=== PATIENT | male | born 1950 | race Caucasian/White ===

== ENCOUNTER 2020-02-20 07:32 | Outpatient (CLI) | payer OTHER, SELFPAY ==
[2020-02-20 08:20] LABS: Cholesterol 149 mg/dL (0-200); HDL Direct 60 mg/dL; Triglycerides 50 mg/dL (<150)
[2020-02-20 08:31] LABS: LDL Cholesterol Direct 67 mg/dL
== END 2020-02-20 07:33 | disposition home or self-care (01) ==
PROVIDERS: PCP Family Medicine; Visit Provider Internal Medicine Cardiovascular Disease
DX: E78.5 Hyperlipidemia, unspecified (principal)
CPT/HCPCS: 36415; 80061

== ENCOUNTER 2021-01-30 08:05 | Outpatient (CLI) | payer MEDICARE, OTHER, SELFPAY ==
[2021-01-30 08:35] LABS: Basophils Percent Auto 0.8 % (0.2-1.2); Eosinophils Absolute Auto 0.2 K/mm3 (0-0.3); Eosinophils Percent Auto 4.2 % (0-4.4); Hematocrit 39.3 % (42.0-52.0); Hemoglobin 13.9 g/dL (14.0-18.0); Immature Granulocyte Absolute 0.01 K/mm3 (0.00-0.031); Immature Granulocyte Percent A 0.2 % (0-0.5); Lymphocytes Absolute Auto 1.06 K/mm3 (0.9-3.2); Lymphocytes Percent Auto 22.3 % (18.3-44.2); Mean Corpuscular HGB Conc 35.4 g/dl (32-36); Mean Corpuscular Hemoglobin 32.8 pg (26-34); Mean Corpuscular Volume 92.7 fl (80-100); Mean Platelet Volume 9.4 fl (7.4-10.4); Monocytes Absolute Auto 0.5 K/mm3 (0.1-0.6); Monocytes Percent Auto 9.5 % (2.6-8.5); Platelet Count Result 166 k/mm3 (150-375); Red Blood Count 4.24 M/mm3 (4.6-6.20); Red Cell Distribution Width 11.5 % (11.5-14.5); White Blood Count 4.8 K/mm3 (4.5-10.0)
[2021-01-30 08:45] LABS: Alanine Aminotransferase 26 U/L (4-50); Albumin Level 4.4 g/dL (3.5-5.1); Alkaline Phosphatase 64 U/L (38-126); Anion Gap 5 mmol/L (8-16); Aspartate Amino Transferase 30 U/L (17-59); Blood Urea Nitrogen 20 mg/dL (9-20); Calcium 9.1 mg/dL (8.4-10.2); Carbon Dioxide 30 mmol/L (22-30); Chloride 103 mmol/L (98-107); Cholesterol 161 mg/dL (0-200); Estimated Glomerular Filt Rate > 60; Glucose 108 mg/dL (65-110); HDL Direct 66 mg/dL; Sodium 138 mmol/L (137-145); Triglycerides 46 mg/dL (<150)
[2021-01-30 08:56] LABS: LDL Cholesterol Direct 71 mg/dL
== END 2021-01-30 08:06 | disposition home or self-care (01) ==
PROVIDERS: PCP Internal Medicine; Referring Provider Internal Medicine Cardiovascular Disease; Visit Provider Nurse Practitioner
DX: E03.9 Hypothyroidism, unspecified (principal); E78.5 Hyperlipidemia, unspecified; I10 Essential (primary) hypertension; Z13.29 Encounter for screening for other suspected endocrine disorder
CPT/HCPCS: 36415; 80053; 80061; 84443; 85025

== ENCOUNTER 2021-12-19 09:58 | Outpatient (CLI) | payer MEDICARE, OTHER, SELFPAY ==
[2021-12-19 19:33] LABS: Alanine Aminotransferase 35 U/L (6-50); Albumin Level 4.5 g/dL (3.5-5.1); Alkaline Phosphatase 62 U/L (38-126); Anion Gap 9 mmol/L (8-16); Aspartate Amino Transferase 34 U/L (17-59); Bilirubin,Total 0.8 mg/dL (0.2-1.3); Blood Urea Nitrogen 21 mg/dL (9-20); Carbon Dioxide 26 mmol/L (22-30); Chloride 101 mmol/L (98-107); Cholesterol 162 mg/dL (0-200); Estimated Glomerular Filt Rate > 60; Glucose 104 mg/dL (65-110); HDL Direct 63 mg/dL; Potassium 4.1 mmol/L (3.4-5.0); Sodium 136 mmol/L (137-145); Triglycerides 78 mg/dL (<150)
[2021-12-19 19:38] LABS: Basophils Absolute Auto 0.1 K/mm3 (0.0-0.1); Basophils Percent Auto 1.2 % (0.2-1.2); Eosinophils Absolute Auto 0.2 K/mm3 (0-0.3); Eosinophils Percent Auto 2.8 % (0-4.4); Hematocrit 39.9 % (42.0-52.0); Hemoglobin 13.6 g/dL (14.0-18.0); Immature Granulocyte Absolute 0.01 K/mm3 (0.00-0.031); Immature Granulocyte Percent A 0.2 % (0-0.5); Lymphocytes Absolute Auto 1.18 K/mm3 (0.9-3.2); Lymphocytes Percent Auto 19.6 % (18.3-44.2); Mean Corpuscular HGB Conc 34.1 g/dl (32-36); Mean Corpuscular Hemoglobin 31.9 pg (26-34); Mean Corpuscular Volume 93.7 fl (80-100); Mean Platelet Volume 10.6 fl (7.4-10.4); Monocytes Absolute Auto 0.6 K/mm3 (0.1-0.6); Monocytes Percent Auto 10.3 % (2.6-8.5); Neutrophils Percent Auto 65.9 % (45.5-73.1); Platelet Count Result 163 k/mm3 (150-375); Red Blood Count 4.26 M/mm3 (4.6-6.20); Red Cell Distribution Width 11.9 % (11.5-14.5)
[2021-12-19 19:44] LABS: LDL Cholesterol Direct 72 mg/dL
[2021-12-19 20:03] LABS: Prostate Specific Antigen 0.5 ng/mL (< OR = 4.0)
== END 2021-12-19 09:59 | disposition home or self-care (01) ==
PROVIDERS: PCP Internal Medicine; Visit Provider Nurse Practitioner
DX: Z12.5 Encounter for screening for malignant neoplasm of prostate (principal); E78.5 Hyperlipidemia, unspecified; I10 Essential (primary) hypertension; E03.9 Hypothyroidism, unspecified; Z13.29 Encounter for screening for other suspected endocrine disorder
CPT/HCPCS: 36415; 80053; 80061; 84153; 84443; 85025; G0103

== ENCOUNTER 2021-12-22 11:52 | Outpatient (CLI) | payer MEDICARE, OTHER, SELFPAY ==
[2021-12-22 19:54] LABS: Basophils Absolute Auto 0.1 K/mm3 (0.0-0.1); Basophils Percent Auto 0.8 % (0.2-1.2); Eosinophils Absolute Auto 0.2 K/mm3 (0-0.3); Hematocrit 38.9 % (42.0-52.0); Hemoglobin 13.2 g/dL (14.0-18.0); Immature Granulocyte Absolute 0.02 K/mm3 (0.00-0.031); Immature Granulocyte Percent A 0.3 % (0-0.5); Lymphocytes Percent Auto 21.9 % (18.3-44.2); Mean Corpuscular HGB Conc 33.9 g/dl (32-36); Mean Corpuscular Hemoglobin 32.4 pg (26-34); Mean Corpuscular Volume 95.3 fl (80-100); Mean Platelet Volume 10.5 fl (7.4-10.4); Monocytes Absolute Auto 0.5 K/mm3 (0.1-0.6); Monocytes Percent Auto 7.8 % (2.6-8.5); Neutrophils Absolute Auto 3.9 K/mm3 (1.3-6.7); Neutrophils Percent Auto 66.2 % (45.5-73.1); Platelet Count Result 151 k/mm3 (150-375); Red Blood Count 4.08 M/mm3 (4.6-6.20); Red Cell Distribution Width 11.9 % (11.5-14.5); Reticulocyte Hemoglobin Conten 35.6 pg (28.2-35.7); Reticulocyte Percent 1.53 % (0.7-4.3); Reticulocytes Absolute 0.06 B/L (32.2-175.7); White Blood Count 5.9 K/mm3 (4.5-10.0)
[2021-12-22 20:51] LABS: Erythrocyte Sedimentation Rate 14 mm/hr (0-20)
[2021-12-22 22:35] LABS: Iron 110 ug/dL (49-181)
[2021-12-22 22:53] LABS: Percent Iron Saturation 37 % (20-50)
[2021-12-22 22:54] LABS: CRP < 0.5 mg/dL (<1.0)
== END 2021-12-22 11:53 | disposition home or self-care (01) ==
PROVIDERS: PCP Internal Medicine; Visit Provider Nurse Practitioner
DX: D64.9 Anemia, unspecified (principal)
CPT/HCPCS: 36415; 82728; 83540; 83550; 85025; 85046; 85652; 86140

== ENCOUNTER 2022-12-06 07:48 | Outpatient (CLI) | payer MEDICARE, SELFPAY ==
--- NOTE | 2022-12-06 08:02 | ECG_ITS ---
Measurements Intervals [place] Rate: 62 P: 48 [place]: 203 QRS: -9 QRSD: 105 T: 30 QT: 383 QTc: 392 Interpretive Statements SINUS RHYTHM INCOMPLETE RIGHT BUNDLE BRANCH BLOCK VOLTAGE CRITERIA FOR LVH BASELINE ARTIFACT- I, II, III, AVR, AVF BORDERLINE ECG NO PREVIOUS ECG AVAILABLE FOR COMPARISON Electronically Signed On 12-06-2022 8:36:37 CDT by Sai Stroud D.O.
== END 2022-12-06 07:49 | disposition home or self-care (01) ==
PROVIDERS: PCP Internal Medicine; Visit Provider Urology
DX: I10 Essential (primary) hypertension (principal); I45.10 Unspecified right bundle-branch block
CPT/HCPCS: 93005

== ENCOUNTER 2022-12-13 02:26 | Day surgery (SDC) | payer MEDICARE, SELFPAY ==
--- NOTE | 2022-12-03 09:36 | PC.NURSE ---
Report to the Outpatient Waiting Room, entrance under the green pavilion located off [facility], at time __0800 on date __12/13/22 . Planned Procedure Time: __1000 . Time changes happen often and if your time is changed the preop area will call you the afternoon before. - You and your visitor will be asked to self-screen and do not enter if you have any COVID symptoms. - A mask is optional within the hospital at this time. Patients may have clear liquids (water, carbonated beverages, clear teas, apple juice) until 3 hours prior to surgery with a maximum of 20 ounces. - No food from midnight until time of surgery - Infants may have breast milk until 4 hours before surgery, infant formula 6 hours prior to surgery. - Children will be allowed to drink immediately following surgery. If applicable, please bring a bottle or sippy cup to assist with drinking. Juice, water, soda, and popsicles are readily available. For infants on formula, please bring formula the day of surgery. Pacifiers are allowed. Take the following medications with a SIP of water the morning of surgery: __AMLODIPINE,CARVEDILOL, LEVOTHYROXINE DO NOT STOP ANY OF YOUR OTHER PRESCRIPTION MEDICATIONS PRIOR TO SURGERY ?EXCEPT THE FOLLOWING Medications to discontinue per physician _PT STATE_HOLD ASPIRIN _AND ALL VITAMINS AND SUPPLEMENTS 7 DAYS PRE OP PER DR FLEMING.LAST DOSE 12/05/22 Please no make-up, nail croatian, hairspray, perfume, deodorant, or body powder the day of surgery. No jewelry (including any body piercings) or valuables the day of surgery, leave them at home. Please take a shower or bath the night before, or the morning of, surgery with an antibacterial soap. Wear comfortable, loose fitting clothing. Children are encouraged to wear pajamas. - Jewelry must be removed prior to entering the operating room. Rings and piercings that are not removed may be cut off. - The hospital will not accept responsibility for valuables. - Please leave all valuables, including medications, at home the day of surgery. If you are going home after surgery, a licensed regional driver must drive you home. - NO public transportation without another adult if you receive anesthesia. - We recommend that an adult stay with you for 24 hours following discharge. - We also recommend that you do not drive, make important decision, drink alcoholic beverages, or take any drugs that were not prescribed by your health care provider for at least 24 hours after your discharge time. For Pediatric surgeries, we recommend two adults accompany the child home. Follow any additional instructions given to you from your surgeon. If you or anyone in your household have experienced Covid symptoms in the past week, please notify your surgeon or the nurse liaison at the phone number below for possible testing. Telephone instructions given to __PATIENT and asked if any additional questions and then verbalized understanding. Patient advised to call surgeon office or pre surgery nurse liaison [phone] if any additional questions.
[2022-12-03 09:42] VITALS: BMI 23.6
--- NOTE | ~2022-12-13 | XR_ITS ---
EXAMINATION: XR retrograde pyelogram BI DATE: 12/13/2022 09:37 INDICATION: Bilateral retrograde pyelograms TECHNIQUE: 142 images of the abdomen and pelvis were obtained during procedure performed by 12/13/2022 . Radiologist was not present for the imaging or procedure. The amount of fluoroscopy time used durin g this procedure was 0.4 minutes. COMPARISON: None. FINDINGS: Retrograde contrast injection into both the right and left ureters demonstrate normal appearance to t he bilateral renal collecting systems and ureters. No evident filling defects or urothelial irregular ities. IMPRESSION: 1. Normal bilateral retrograde pyelograms. Reviewed, dictated and finalized at location A.
--- NOTE | 2022-12-13 06:16 | WPDHPUPDATE1 ---
History and Physical Update Update Date/Time: 12/13/22 06:16 History and Physical has been reviewed, including an updated exam of the patient. There are NO changes in the patient's condition. Risks, benefits, and alternatives have been discussed and questions answered. Patient agrees to proceed with procedure.
[2022-12-13 08:16] VITALS: BP 154/84; PULSE 64; RESP 20; TEMP 36.3; O2SAT 100
[2022-12-13] MEDS: LACTATED RINGERS 1,000 ML 30 ML IV CONT (08:23)
--- NOTE | 2022-12-13 08:36 | WPDANESEPPF ---
Anes - Initial Pre Proc Eval Procedure: Operation Date: 12/13/22 10:00 Proposed Procedures p Trans Urethral Resection Bladder Tumor - Ming Vergara MD s Cystoscopy with Bladder Biopsy, Bilateral Retrograde Pyelogram - Ming Vergara MD Date/Time: 12/13/22 08:36 Surgeon: Ming Vergara MD Pre Op Diagnosis: Bladder Tumor, BPH, with Obstruction Patient Data Age: 71 Gender: M Height: 1.8 m Weight: 75 kg Last Vital Signs Temp 36.3 C L 12/13/22 08:16 Pulse 64 12/13/22 08:16 Resp 20 12/13/22 08:16 BP 154/84 H 12/13/22 08:16 Pulse Ox 100 12/13/22 08:16 O2 Del Method Room Air 12/13/22 08:16 Allergies Allergy/AdvReac Type Severity Reaction Status Date / Time No Known Allergies Allergy Verified 12/13/22 08:14 Home Medications Medication Instructions Recorded Confirmed Type aspirin 81 mg tablet,delayed 81 mg PO DAILY 01/22/19 12/03/22 History release multivitamin 1 cap PO DAILY 01/22/19 12/03/22 History tamsulosin 0.4 mg capsule 0.4 mg PO DAILY 01/22/19 12/03/22 History vit B complex 100 combo no.2 100 1 tablet PO DAILY 01/22/19 12/03/22 History mg tablet,extended release (B-100 Complex ER) finasteride 5 mg tablet 5 mg PO DAILY 12/19/21 12/03/22 History levothyroxine 75 mcg tablet See Rx Instructions .Route 03/13/22 12/03/22 Rx .COMPLEX #90 tabs carvedilol 12.5 mg tablet See Rx Instructions .Route 06/11/22 12/03/22 Rx .COMPLEX #180 tabs losartan 100 mg tablet See Rx Instructions .Route 06/11/22 12/03/22 Rx .COMPLEX #90 tabs pravastatin 10 mg tablet See Rx Instructions .Route 06/11/22 12/03/22 Rx .COMPLEX #90 tabs amlodipine 5 mg tablet See Rx Instructions .Route 09/10/22 12/03/22 Rx .COMPLEX #90 tabs coQ10 (ubiquinol) 100 mg capsule 100 mg PO DAILY 12/03/22 12/03/22 History Patient hx anesthesia problems: none Family hx anesthesia problems: none Results Review: All pre-operative results and documents have been reviewed as part of the pre-operative evaluation. [facility] Past Medical History Medical History BPH loc w/o ur obs/LUTS GERD (gastroesophageal reflux disease) Hypertension Hypothyroidism Prostatitis Surgical History Surgical History History of coronary artery stent placement 01/2016 History of deviated nasal septum 1975 - s/p surgical correction History of thyroidectomy (~1997) Family History Family History Father Family history of cardiovascular disease Mother Family history of cardiovascular disease Other Family history of coronary artery disease Hypertension Social History Social History Smoking status: Never smoker Second hand tobacco smoke exposure: No Alcohol intake: never Substance use: never Substance use type: does not use Living arrangements: with family Spiritual care concerns: No Anes - Eval Final PreProcedure Day of Procedure 12/13/22 08:36 Patient weight: normal Heart: regular rate and rhythm Lungs: clear to auscultation Airway: Mallampati scale class II Neurological: alert and oriented Last oral intake: >/= 8 hours ASA classification: III Emergent: no Anesthetic plan: proceed Anesthesia type and monitoring: general LMA and standard monitoring Results Review: All pre-operative results and documents have been reviewed as part of the pre-operative evaluation. Informed Consent: The patient's anesthetic plan and its attendant risks and benefits were discussed with the patient/family/POA. Questions were solicited and answers provided to the satisfaction of the patient/family/POA.
[2022-12-13] MEDS: ceFAZolin 2 GM/D5W 50 ML 2 GM/50 ML BAG IVPB (09:14)
[2022-12-13] MEDS: LIDOCAINE HCL 2% GEL UROJET 10 ML PKG MUCOUS MEM (09:37)
--- NOTE | 2022-12-13 09:44 | P.OP_ITS ---
Procedure Note - Detailed Date of Procedure 12/13/22 Pre-op Diagnosis Recurrent bladder tumor Post-op Diagnosis Same Procedure Performed Cystoscopy, bilateral retrograde pyelography, TURBT ( small,1-2 cm) Surgeon Ming Vergara MD Anesthesia General Description of Procedure patient brought the op suite was prepped draped in routine sterile fashion while in dorsal lithotomy position after the uneventful induction of a general LMA anesthetic. Cystoscopy is undertaken with a 21 F rigid cystoscope. He has moderate lateral lobe hyperplasia of the prostate. He has a pedunculated recurrent neoplasm arising at the 6 o'clock position of the bladder neck. I suspected is causing some obstructive uropathy. The bladder is otherwise endoscopically normal without mucosal hyperemia or additional neoplasm. He has a single orthotopic ureteral orifice bilobed laterally. A F bulb-tipped catheters used to obtain bilateral retrograde pyelograms which showed normal upper urinary tracts, without obstruction or filling defects. Using resectoscope this small bladder neck neoplasm was resected. The base and p eriphery was cauterized both the loop and rollerball electrode. He tolerated the procedure well. Drains No Pathology Yes Complications No immediate complications Condition Stable
[2022-12-13 09:45] VITALS: BP 99/67; PULSE 60; RESP 10; TEMP 36.4; O2SAT 100
[2022-12-13 10:00] VITALS: BP 119/77; PULSE 60; RESP 10; O2SAT 100
[2022-12-13 10:15] VITALS: BP 135/85; PULSE 63; RESP 12; O2SAT 100
[2022-12-13 10:36] VITALS: BP 141/80; PULSE 59
== END 2022-12-13 11:23 | disposition home or self-care (01) ==
PROVIDERS: PCP Internal Medicine; Visit Provider Urology
PROC: 0TBB8ZZ Excision of Bladder, Via Natural or Artificial Opening Endoscopic (ICD-10-PCS; CPT 52234; principal; 2022-12-13 10:00)
PROC: (CPT 52352; 2022-12-13 10:00)
DX: C67.5 Malignant neoplasm of bladder neck (principal); N40.0 Benign prostatic hyperplasia without lower urinary tract symptoms; I10 Essential (primary) hypertension; K21.9 Gastro-esophageal reflux disease without esophagitis; E89.0 Postprocedural hypothyroidism; Z79.82 Long term (current) use of aspirin; Z95.5 Presence of coronary angioplasty implant and graft
CPT/HCPCS: 52234; 51702; 74420; 88305; 99283; C1758; C1769; J0690; J1100; J2405; J2704; J3010; J7120; Q9966

== ENCOUNTER 2022-12-13 18:47 | Emergency (ER) | payer MEDICARE, SELFPAY ==
[2022-12-13 18:48] VITALS: BP 187/104; PULSE 100; RESP 18; TEMP 36.6; O2SAT 100
--- NOTE | 2022-12-13 21:25 | ED.GENADULT ---
HPI - General Adult General Chief complaint: Urogenital-Male Stated complaint: urinary retention s/p TURP Time Seen by Provider: 12/13/22 19:52 History of Present Illness HPI narrative: 71-year-old male who follows up with urology, Dr Vergara. Presents to the ED for evaluation of urinary retention. Patient does take 2 medications for enlarged prostate and did have a TURP today. Patient also had a polyp removed from his bladder. After getting home patient states that he had some decreased urinary output. Upon arrival to the ED patient has significant urinary retention and a Guadalupe catheter was placed. Patient did feel improved after the placement of Guadalupe catheter. Related Data Home Medications Medication Instructions Recorded Confirmed aspirin 81 mg tablet,delayed 81 mg PO DAILY 01/22/19 12/03/22 release multivitamin 1 cap PO DAILY 01/22/19 12/03/22 tamsulosin 0.4 mg capsule 0.4 mg PO DAILY 01/22/19 12/03/22 vit B complex 100 combo no.2 100 1 tablet PO DAILY 01/22/19 12/03/22 mg tablet,extended release (B-100 Complex ER) finasteride 5 mg tablet 5 mg PO DAILY 12/19/21 12/03/22 coQ10 (ubiquinol) 100 mg capsule 100 mg PO DAILY 12/03/22 12/03/22 Allergies Allergy/AdvReac Type Severity Reaction Status Date / Time No Known Allergies Allergy Verified 12/13/22 08:14 Review of Systems Review of Systems: All systems reviewed & are unremarkable except as noted in HPI and below PMFSH Past Medical History Medical History BPH loc w/o ur obs/LUTS GERD (gastroesophageal reflux disease) Hypertension Hypothyroidism Prostatitis Surgical History Surgical History History of coronary artery stent placement 01/2016 History of deviated nasal septum 1974 - s/p surgical correction History of thyroidectomy (~1997) Family History Family History Father Family history of cardiovascular disease Mother Family history of cardiovascular disease Other Family history of coronary artery disease Hypertension Social History Social History Smoking status: Never smoker Second hand tobacco smoke exposure: No Alcohol intake: never Substance use: never Substance use type: does not use Living arrangements: with family Spiritual care concerns: No Exam Narrative: APPEARANCE: Well appearing, no pain, no distress, well-nourished. HEAD: normocephalic, atraumatic. EYES: PERRLA/EOMI, conjunctivae clear. NOSE: Normal no drainage NECK: Supple. No adenopathy, no masses. RESPIRATORY: Airway patent, respirations nonlabored. Clear to auscultation bilaterally, no rales, rhonchi, wheezing. CARDIOVASCULAR: Regular rate and rhythm without murmurs rubs or gallops. ABDOMINAL: Soft, nontender, nondistended, normal bowel sounds MUSCULOSKELETAL: Moves all extremities. Strength/ROM intact, No edema, No calf tenderness. NEURO: Alert. Cranial nerves II through XII intact. Grossly intact SKIN: Warm, dry. Normal Color Course Course Emergency Course: 71-year-old male presented ED for evaluation of urinary tension. Patient did feel improved after placement of the Guadalupe catheter. Urine did show some bloody urine but patient was draining adequately. Repeat bladder scan showed no retained urine and symptomatically patient does feel improved. Patient Mooney updated the results of the work-up and encouraged of close follow-up with Dr. Vergara. Vital Signs Vital signs: Vital Signs Temperature 97.9 F 12/13/22 18:48 Pulse Rate 100 12/13/22 18:48 Respiratory Rate 18 12/13/22 18:48 Blood Pressure 187/104 H 12/13/22 18:48 Pulse Oximetry 100 12/13/22 18:48 Oxygen Delivery Room Air 12/13/22 18:48 Temperature 97.9 F 12/13/22 18:48 Pulse Rate 100 12/13/22 18:48 Respiratory Rate 18 12/13/22 1
== END 2022-12-13 22:08 | disposition home or self-care (01) ==
PROVIDERS: Emergency Provider Emergency Medicine; PCP Internal Medicine
DX: N99.89 Other postprocedural complications and disorders of genitourinary system (principal); R33.8 Other retention of urine; R31.0 Gross hematuria; N40.1 Benign prostatic hyperplasia with lower urinary tract symptoms; K21.9 Gastro-esophageal reflux disease without esophagitis; I10 Essential (primary) hypertension; E89.0 Postprocedural hypothyroidism; Z95.5 Presence of coronary angioplasty implant and graft; Z79.82 Long term (current) use of aspirin
CPT/HCPCS: 51702; 99283

== ENCOUNTER 2023-02-12 07:14 | Outpatient (CLI) | payer MEDICARE, SELFPAY ==
[2023-02-12 08:04] LABS: Alanine Aminotransferase 40 U/L (6-50); Albumin Level 4.3 g/dL (3.5-5.1); Alkaline Phosphatase 71 U/L (38-126); Anion Gap 8 mmol/L (8-16); Aspartate Amino Transferase 38 U/L (17-59); Blood Urea Nitrogen 19 mg/dL (9-20); Calcium 9.1 mg/dL (8.4-10.2); Carbon Dioxide 30 mmol/L (22-30); Chloride 100 mmol/L (98-107); Cholesterol 169 mg/dL (0-200); Estimated Glomerular Filt Rate > 60; Glucose 101 mg/dL (65-110); HDL Direct 66 mg/dL; Potassium 3.8 mmol/L (3.4-5.0); Sodium 138 mmol/L (137-145); Triglycerides 51 mg/dL (<150)
[2023-02-12 08:14] LABS: LDL Cholesterol Direct 76 mg/dL
== END 2023-02-12 07:15 | disposition home or self-care (01) ==
PROVIDERS: PCP Internal Medicine; Visit Provider Internal Medicine Cardiovascular Disease
DX: E78.5 Hyperlipidemia, unspecified (principal)
CPT/HCPCS: 36415; 80053; 80061

== ENCOUNTER → 2023-02-16 07:46 | Outpatient (CLI) | payer MEDICARE, SELFPAY ==
--- NOTE | ~2023-02-16 | XR_ITS ---
EXAMINATION: XR lumbar spine 6V w bending DATE: 02/16/2023 08:22 INDICATION: Low back pain TECHNIQUE: Anteroposterior, lateral in neutral, flexion and extension, and bilateral oblique views of the lumbar spine, and cone-down lateral view of the lumbosacral junction were obtained. COMPARISON: 06/15/2011 FINDINGS: There are 3 mm of retrolisthesis of L2 on L3 and 5 mm of anterolisthesis of L4 on L5. No hy permobility is present with flexion or extension. There is severe loss of intervertebral disc space h eight at L5-S1. There is moderate loss of intervertebral disc space height at L2-3 and L4-5. The vert ebral body heights are maintained. There is no fracture. Small degenerative osteophytes project from the anterior endplates of multiple vertebral bodies. There is moderate facet joint osteoarthritis at L4-5 and L5-S1. IMPRESSION: 1. Moderate lumbar spondylosis without acute findings. Reviewed, dictated and finalized at location F. INSTALLER
== END ==
PROVIDERS: PCP Internal Medicine; Visit Provider Nurse Practitioner
DX: M43.06 Spondylolysis, lumbar region (principal)
CPT/HCPCS: 72114

== ENCOUNTER 2023-02-26 09:38 | Outpatient (CLI) | payer MEDICARE, SELFPAY ==
[2023-02-26 10:30] LABS: Basophils Percent Auto 0.7 % (0.2-1.2); Eosinophils Absolute Auto 0.2 K/mm3 (0-0.3); Eosinophils Percent Auto 3.1 % (0-4.4); Hematocrit 41.5 % (42.0-52.0); Immature Granulocyte Absolute 0.01 K/mm3 (0.00-0.031); Immature Granulocyte Percent A 0.2 % (0-0.5); Lymphocytes Absolute Auto 0.94 K/mm3 (0.9-3.2); Lymphocytes Percent Auto 17.2 % (18.3-44.2); Mean Corpuscular HGB Conc 33.7 g/dl (32-36); Mean Platelet Volume 10.1 fl (7.4-10.4); Monocytes Absolute Auto 0.5 K/mm3 (0.1-0.6); Monocytes Percent Auto 9.9 % (2.6-8.5); Neutrophils Absolute Auto 3.8 K/mm3 (1.3-6.7); Neutrophils Percent Auto 68.9 % (45.5-73.1); Platelet Count Result 169 k/mm3 (150-375); Red Blood Count 4.37 M/mm3 (4.6-6.20); Red Cell Distribution Width 11.8 % (11.5-14.5); White Blood Count 5.5 K/mm3 (4.5-10.0)
[2023-02-26 11:09] LABS: Prostate Specific Antigen 0.7 ng/mL (< OR = 4.0)
== END 2023-02-26 09:39 | disposition home or self-care (01) ==
LOC: ANHLAB 09:40
PROVIDERS: PCP Internal Medicine; Visit Provider Nurse Practitioner
DX: Z12.5 Encounter for screening for malignant neoplasm of prostate (principal); E03.9 Hypothyroidism, unspecified; D64.9 Anemia, unspecified
CPT/HCPCS: 36415; 84153; 84443; 85025; G0103

== ENCOUNTER 2024-02-05 07:04 | Outpatient (CLI) | payer MEDICARE, SELFPAY ==
[2024-02-05 07:53] LABS: Basophils Percent Auto 0.8 % (0.2-1.2); Eosinophils Absolute Auto 0.3 K/mm3 (0-0.3); Eosinophils Percent Auto 6.3 % (0-4.4); Hematocrit 37.9 % (42.0-52.0); Hemoglobin 13.2 g/dL (14.0-18.0); Immature Granulocyte Absolute 0.02 K/mm3 (0.00-0.031); Immature Granulocyte Percent A 0.4 % (0-0.5); Lymphocytes Absolute Auto 1.07 K/mm3 (0.9-3.2); Lymphocytes Percent Auto 21.2 % (18.3-44.2); Mean Corpuscular HGB Conc 34.8 g/dl (32-36); Mean Corpuscular Hemoglobin 32.7 pg (26-34); Mean Corpuscular Volume 93.8 fl (80-100); Mean Platelet Volume 10.1 fl (7.4-10.4); Monocytes Absolute Auto 0.6 K/mm3 (0.1-0.6); Monocytes Percent Auto 10.9 % (2.6-8.5); Neutrophils Percent Auto 60.4 % (45.5-73.1); Platelet Count Result 166 k/mm3 (150-375); Red Blood Count 4.04 M/mm3 (4.6-6.20); Red Cell Distribution Width 11.9 % (11.5-14.5)
[2024-02-05 08:10] LABS: Alanine Aminotransferase 29 U/L (6-50); Albumin Level 4.2 g/dL (3.5-5.1); Alkaline Phosphatase 60 U/L (38-126); Anion Gap 5 mmol/L (4-12); Aspartate Amino Transferase 34 U/L (17-59); Blood Urea Nitrogen 20 mg/dL (9-20); Calcium 8.7 mg/dL (8.4-10.2); Carbon Dioxide 29 mmol/L (22-30); Chloride 104 mmol/L (98-107); Cholesterol 162 mg/dL (0-200); Estimated Glomerular Filt Rate > 60; Glucose 96 mg/dL (65-110); HDL Direct 68 mg/dL; Potassium 3.8 mmol/L (3.4-5.0); Sodium 138 mmol/L (137-145); Triglycerides 51 mg/dL (<150)
[2024-02-05 08:21] LABS: LDL Cholesterol Direct 63 mg/dL
== END 2024-02-05 07:05 | disposition home or self-care (01) ==
PROVIDERS: PCP Internal Medicine; Visit Provider Internal Medicine Cardiovascular Disease
DX: E78.5 Hyperlipidemia, unspecified (principal)
CPT/HCPCS: 36415; 80053; 80061; 85025

== ENCOUNTER 2024-07-30 10:21 | Outpatient (CLI) | payer MEDICARE, SELFPAY ==
--- OUTSIDE RECORDS SUMMARY | 2024-07-30 10:27 | XMS_ITS | Clinical Summary ---
Author Organization [employer] [facility] Address [address] Attn: Epic Prelude ADT LESLY DODSON [id number] Care Team Providers Care Armor Reconnaissance Vehicle Crewman Name Role Phone Unavailable Primary Care Provider Unavailabl e Allergies No known active allergies Medications tamsulosin (FLOMAX) 0.4 mg capsule Take 1 Capsule (0.4 mg) by mouth daily at bedtime. 90 Capsule 4 03/13/2023 11:45 AM STRIP MACHINE TENDER 06/10/2022 Active finasteride (PROSCAR) 5 mg tablet Take 1 Tablet (5 mg) by mouth daily. 90 Tablet 4 06/06/2024 1:01 PM CDT 06/06/2023 Active finasteride (PROSCAR) 5 mg tablet Take 1 Tablet (5 mg) by mouth daily. 90 Tablet 4 06/06/2023 Active carvediloL (COREG) 12.5 mg tablet TAKE ONE TABLET BY MOUTH EVERY 12 HOURS WITH FOOD/MEAL 180 Tablet 2 06/06/2024 1:01 PM CDT 12/03/2023 5 Active losartan (COZAAR) 100 mg tablet TAKE ONE TABLET BY MOUTH ONCE DAILY 90 Tablet 2 06/06/2024 1:01 PM CDT 12/03/2023 5 Active pravastatin (PRAVACHOL) 10 mg tablet TAKE ONE TABLET BY MOUTH ONCE DAILY 90 Tablet 2 06/06/2024 1:01 PM CDT 12/03/2023 5 Active tadalafil (CIALIS) 5 mg tablet Take 1 Tablet (5 mg) by mouth daily. 30 Tablet 11 04/20/2024 2:15 PM STRIP MACHINE TENDER 01/07/2024 Active amLODIPine (NORVASC) 5 mg tablet TAKE ONE TABLET BY MOUTH ONCE DAILY 90 Tablet 2 06/06/2024 1:01 PM CDT 03/02/2024 Active levothyroxine 75 mcg tablet Take 1 Tablet (75 mcg) by mouth daily. 90 Tablet 3 06/06/2024 1:01 PM CDT 03/02/2024 Active Immunizations Immunization Administration Dates Next Due INFLUENZA VACCINE HIGH DOSE QUADRIVALENT 65 YR U P PF IM 01/11/2022 Social History Tobacco Use Types Packs/Day Years Used Date Smoking Tobacco: Never Assessed Sex and Gender Information Value Date Recorded Sex Assigned at Not on file Legal Sex Male 3:27 PM CDT Gender Identity Not on file Sexual Orientation Not on file Plan of Treatment Health Maintenance Due Date Last Done Comments DTAP/TDAP/TD VACCINES (1 - Tdap) 1969 COLORECTAL SCREENING 12/25/1995 Colorectal Cancer Screening 12/25/1995 FIT-DNA Q 3 years 12/25/1995 FIT/FOBT Q 1 year 12/25/1995 Flex Sig/CT Colonography Q 5 years 12/25/1995 PNEUMOCOCCAL VACCINE 50+ YEARS (1 of 1 - PCV) 12/25/19 ZOSTER VACCINE (1 of 2) 2000 INFLUENZA VACCINE (#1) 2023 01/11/2022 RSV VACCINE (60+ or ) (1 - 1-dose 75+ series) 2025 Insurance [facility] [employer] RX [employer] Medicare Part D
[2024-07-30 12:11] LABS: Free T3 2.92 pg/mL (2.45-5.93); Free T4 Free Thyroxine 1.23 ng/dL (0.78-2.19)
[2024-07-30 12:25] LABS: Prostate Specific Antigen 0.8 ng/mL (< OR = 4.0)
== END 2024-07-30 10:22 | disposition home or self-care (01) ==
LOC: ANHGOSHLAB 10:22
PROVIDERS: PCP Internal Medicine; Visit Provider Nurse Practitioner
DX: E03.9 Hypothyroidism, unspecified (principal); Z12.5 Encounter for screening for malignant neoplasm of prostate
CPT/HCPCS: 36415; 84153; 84439; 84443; 84481; G0103

== ENCOUNTER 2025-01-28 07:13 | Outpatient (CLI) | payer MEDICARE, SELFPAY ==
--- OUTSIDE RECORDS SUMMARY | 2025-01-28 07:17 | XMS_ITS | Clinical Summary ---
Author Organization [employer] [facility] Address [address] [facility] Attn: Clint Prelude ADT LESLY DODSON [id number] Care Team Providers Care Grain Combiner Name Role Phone Unavailable Primary Care Provider Unavailabl e Allergies No known active allergies Medications tamsulosin (FLOMAX) 0.4 mg capsule Take 1 Capsule (0.4 mg) by mouth daily at bedtime. 90 Capsule 4 03/13/2023 11:45 AM SCHEDULING ASSISTANT 06/10/2022 Active finasteride (PROSCAR) 5 mg tablet Take 1 Tablet (5 mg) by mouth daily. 90 Tablet 4 06/06/2023 Active tadalafil (CIALIS) 5 mg tablet Take 1 Tablet (5 mg) by mouth daily. 30 Tablet 11 11/25/2024 10:07 AM CDT 01/07/2024 Active levothyroxine 75 mcg tablet Take 1 Tablet (75 mcg) by mouth daily. 90 Tablet 3 06/06/2024 1:01 PM CDT 03/02/2024 Active levothyroxine 75 mcg tablet Take 1 Tablet (75 mcg) by mouth daily. 90 Tablet 3 12/02/2024 11:13 AM CDT 07/30/2024 Active losartan (COZAAR) 100 mg tablet TAKE ONE TABLET BY MOUTH ONCE DAILY 90 Tablet 2 12/02/2024 11:13 AM CDT 08/31/2024 Active carvediloL (COREG) 12.5 mg tablet TAKE ONE TABLET BY MOUTH EVERY 12 HOURS WITH FOOD/MEAL 180 Tablet 2 12/02/2024 11:13 AM CDT 08/31/2024 Active pravastatin (PRAVACHOL) 10 mg tablet TAKE 1 TABLET BY MOUTH ONCE DAILY 90 Tablet 2 12/02/2024 11:13 AM CDT 08/31/2024 Active finasteride (PROSCAR) 5 mg tablet Take 1 Tablet (5 mg) by mouth daily. 90 Tablet 4 12/02/2024 11:13 AM CDT 08/30/2024 Active amLODIPine (NORVASC) 5 mg tablet TAKE ONE TABLET BY MOUTH ONCE DAILY 90 Tablet 2 12/02/2024 11:13 AM CDT 11/30/2024 Active Immunizations Immunization Administration Dates Next Due [...] (1 of 2) 2000 INFLUENZA VACCINE (#1) 2024 01/11/2022 RSV VACCINE (60+ or ) (1 - 1-dose 75+ series) 2025 Insurance RX [employer] ([employer]) [facility] [employer] RX [employer] Medicare Part D
[2025-01-28 07:34] LABS: Hematocrit 39.5 % (42.0-52.0); Hemoglobin 13.6 g/dL (14.0-18.0); Immature Granulocyte Percent A 0.2 % (0-0.5); Lymphocytes Absolute Auto 1.11 K/mm3 (0.9-3.2); Mean Corpuscular HGB Conc 34.4 g/dl (32-36); Mean Corpuscular Hemoglobin 32.0 pg (26-34); Mean Corpuscular Volume 92.9 fl (80-100); Nucleated Red Blood Cells Absolute Auto 0.000 K/mm3 (0.0-0.012); Nucleated Red Blood Cells Perc 0.0 % (0.0-0.2); Platelet Count Result 166 k/mm3 (150-375); Red Blood Count 4.25 M/mm3 (4.6-6.20); White Blood Count 4.9 K/mm3 (4.5-10.0)
[2025-01-28 07:43] LABS: Alanine Aminotransferase 27 U/L (6-50); Albumin Level 4.5 g/dL (3.5-5.1); Alkaline Phosphatase 59 U/L (38-126); Anion Gap 8 mmol/L (4-12); Aspartate Amino Transferase 35 U/L (17-59); Bilirubin,Total 1.0 mg/dL (0.2-1.3); Blood Urea Nitrogen 22 mg/dL (9-20); Calcium 8.8 mg/dL (8.4-10.2); Carbon Dioxide 27 mmol/L (22-30); Chloride 102 mmol/L (98-107); Cholesterol 168 mg/dL (0-200); Estimated Glomerular Filt Rate > 60; Glucose 102 mg/dL (65-110); HDL Direct 69 mg/dL; Potassium 4.3 mmol/L (3.4-5.0); Sodium 137 mmol/L (137-145); Total Protein 8.0 g/dL (6.3-8.2); Triglycerides 58 mg/dL (<150)
[2025-01-28 08:15] LABS: Thyroid Stimulating Hormone Reflex 3.640 uIU/mL (0.465-4.68)
== END 2025-01-28 07:14 | disposition home or self-care (01) ==
PROVIDERS: PCP Internal Medicine; Visit Provider Internal Medicine Cardiovascular Disease
DX: E78.5 Hyperlipidemia, unspecified (principal)
CPT/HCPCS: 36415; 80053; 80061; 84443; 85025